=== PATIENT | male | born 1970 | race Caucasian/White ===

== ENCOUNTER 2018-11-18 16:35 | Emergency (ER) | payer MEDICAID ==
[~2018-11-18] VITALS: Ht 200.7 cm; Wt 109.0 kg
[~2018-11-18 16:35] MED LIST: AMO250C PO; [UNRECOGNIZED DRUG - CODE] PO
[2018-11-18 16:46] VITALS: BP 152/100
[2018-11-18] MEDS ORDERED: LIDOcaine Viscous 15ml cup PO ONE (17:45)
== END 2018-11-18 18:28 | disposition home or self-care (01) ==
LOC: ER 16:35
DX: K20.9 Esophagitis, unspecified (principal); Z79.2 Long term (current) use of antibiotics; Z79.899 Other long term (current) drug therapy
CPT/HCPCS: 99282

== ENCOUNTER 2021-06-10 08:28 | Day surgery (SDC) | payer MEDICAID ==
[~2021-06-10] VITALS: Ht 200.7 cm; Wt 127.5 kg
[2021-06-10] VITALS (10 sets, daily range): BP systolic 98–115; BP diastolic 46–72
[2021-06-10] MEDS ORDERED: LIDOcaine 1% 30ml preserv. free vial SQ STA (08:43)
[2021-06-10] MEDS ORDERED: FOLI0.4T6 PO (09:08)
[2021-06-10] MEDS ORDERED: OMEP-50 PO (09:08)
[2021-06-10] MEDS ORDERED: FURO40TA4 PO (09:08)
[2021-06-10] MEDS ORDERED: LACT10SO67 (09:08)
[2021-06-10] MEDS ORDERED: WEL625T PO (09:12)
[2021-06-10] MEDS ORDERED: CHOL500050 PO (09:12)
[2021-06-10] MEDS ORDERED: THIA100T66 PO (09:12)
[2021-06-10] MEDS ORDERED: RIFA550T PO (09:12)
[2021-06-10] MEDS ORDERED: MULT-381 PO (09:12)
[2021-06-10] MEDS: albumin 25% 100mL bottle x 1 IV PRN ×2 (10:20→10:37)
== END 2021-06-10 12:05 | disposition home or self-care (01) ==
LOC: SSTAY O 08:28
PROVIDERS: ATTEND Radiology Vascular & Interventional Radiology
DX: K70.31 Alcoholic cirrhosis of liver with ascites (principal); K21.9 Gastro-esophageal reflux disease without esophagitis; G47.30 Sleep apnea, unspecified; K76.6 Portal hypertension; F12.90 Cannabis use, unspecified, uncomplicated; F17.290 Nicotine dependence, other tobacco product, uncomplicated; Z72.89 Other problems related to lifestyle; Z79.899 Other long term (current) drug therapy
CPT/HCPCS: 49083; P9047

== ENCOUNTER 2021-06-20 08:17 | Day surgery (SDC) | payer MEDICAID ==
[~2021-06-20] VITALS: Ht 200.7 cm; Wt 127.5 kg
[2021-06-20] VITALS (17 sets, daily range): BP systolic 73–104; BP diastolic 18–59
[~2021-06-20 08:17] MED LIST changes: -AMO250C PO; +CHOL500050 PO; +FOLI0.4T6 PO; +FURO40TA4 PO; +LACT10SO67; +LIDOcaine 1% 30ml preserv. free vial IJ STA; +MULT-381 PO; +OMEP-50 PO; +RIFA550T PO; +THIA100T66 PO; +WEL625T PO; -[UNRECOGNIZED DRUG - CODE] PO
[2021-06-20] MEDS ORDERED: Keflex PO (08:48)
[2021-06-20] MEDS ORDERED: albumin (human) 25% 100ml IV 100 ML IV ONE ×2 (10:15→11:10)
[2021-06-20] MEDS ORDERED: normal saline 1000ml 1,000 ML IV ONE (12:45)
--- NOTE | 2021-06-20 12:45 | NUR ---
Notified Vitaly Camara that patient hypotenisve with BP 79/45. Order for 500 mL NS bolus x 1 and repeat to maintain SBP > 95.
== END 2021-06-20 15:45 | disposition home or self-care (01) ==
LOC: SSTAY O 08:17
PROVIDERS: ATTEND Radiology Vascular & Interventional Radiology
DX: K70.31 Alcoholic cirrhosis of liver with ascites (principal); K21.9 Gastro-esophageal reflux disease without esophagitis; F17.290 Nicotine dependence, other tobacco product, uncomplicated; F12.90 Cannabis use, unspecified, uncomplicated; G47.30 Sleep apnea, unspecified; K76.6 Portal hypertension; Z72.89 Other problems related to lifestyle; Z87.19 Personal history of other diseases of the digestive system; Z79.899 Other long term (current) drug therapy
CPT/HCPCS: 49083; J2001; J7030; P9047

== ENCOUNTER 2021-07-01 07:45 | Day surgery (SDC) | payer MEDICAID ==
[~2021-07-01] VITALS: Ht 200.7 cm; Wt 113.8 kg
[2021-07-01] VITALS (7 sets, daily range): BP systolic 90–112; BP diastolic 53–65
[~2021-07-01 07:45] MED LIST changes: +Keflex PO; -LIDOcaine 1% 30ml preserv. free vial IJ STA
[2021-07-01] MEDS ORDERED: albumin 25% 100mL bottle x 1 IV PRN (08:05)
== END 2021-07-01 11:35 | disposition home or self-care (01) ==
LOC: SSTAY O 07:45
PROVIDERS: ATTEND Radiology Vascular & Interventional Radiology
DX: K70.31 Alcoholic cirrhosis of liver with ascites (principal); K21.9 Gastro-esophageal reflux disease without esophagitis; G47.30 Sleep apnea, unspecified; K76.6 Portal hypertension; F12.90 Cannabis use, unspecified, uncomplicated; Z87.19 Personal history of other diseases of the digestive system; Z72.89 Other problems related to lifestyle
CPT/HCPCS: 49083; P9047